=== PATIENT | female | born 1945 | race Asian ===

== ENCOUNTER 2018-09-22 16:07 | Outpatient (CLI) | payer MEDICARE, OTHER ==
--- NOTE | 2018-09-22 17:17 | Diagnostic Imaging Report ---
Indication: Cough Technique: 2 views of the chest Comparison: None Findings: There is a right chest port catheter in good position. The lungs and pleural spaces are clear. The aorta is calcified. The heart size is normal. The top of an endobiliary stent is noted in the upper abdomen. Pneumobilia is also noted Impression: No acute process Endobiliary stent incidentally noted. There is pneumobilia, presumably related to the presents of such
== END 2018-09-22 18:07 | disposition home or self-care (01) ==
LOC: RAD 16:07
DX: R05 Cough (principal); Z95.5 Presence of coronary angioplasty implant and graft
CPT/HCPCS: 71046